=== PATIENT | female | born 1995 | race American Indian/Alaskan Native ===

== ENCOUNTER 2019-02-02 11:18 | Emergency (ER) | payer MEDICAID ==
[2019-02-02] MEDS ORDERED: LORazepam 2 MG/ML VIAL ONE (11:26)
[2019-02-02] MEDS ORDERED: SODIUM CHLORIDE 0.9% 1000 ML 1,000 ML ONE (11:26)
[2019-02-02] MEDS ORDERED: SODIUM CHLORIDE 0.9% 1000 ML 1,000 ML IV ONE (11:29)
[2019-02-02] MEDS ORDERED: levETIRAcetam 1000 MG/NS 0.75% 1,000 MG/100 ML BAG IV ONE (11:30)
[2019-02-02] MEDS ORDERED: LORazepam 2 MG/ML VIAL IV ONE ×2 (11:30→11:38)
--- NOTE | 2019-02-02 11:43 | Emergency Department Report ---
HPI - General Time Seen by Provider: 02/02/19 11:28 - HPI HPI: 23-year-old -[place] female presents to the emergency department via EMS from home with complaint of seizures and altered mental status. The patient does have a seizure history for which she is on Keppra and another medication. She has a history of a glioblastoma. At baseline she is nonambulatory with some left-sided weakness, but she is normally verbal and conversive. Through EMS, mom had said that the patient started having seizures around 3:30 AM this morning. She was given some Versed and went back to her normal baseline mental status. However the seizure started again later in the morning. EMS says that she has been in her current condition since she has been in their presence and that family said she was having seizures when they arrived. She presents with elevated heart rate with a pre-arrival EKG that showed concern for SVT. The patient was given 6 mg, and then 12 mg, of adenosine without any improvement or conversion. ED Review of Systems ROS: Stated complaint: SEIZURES Other details as noted in HPI Comment: Unobtainable due to pts medical conditions Physical Exam - Physical Exam Physical Exam: GENERAL: Patient is ill-appearing and unresponsive. HENT: Normocephalic. Atraumatic. Patient has moist mucous membranes. EYES: Pupils equal reactive to light bilaterally. NECK: Supple. Trachea is midline. CHEST/LUNGS: Clear to auscultation. There is severe tachypnea with accessory muscle use. There is respiratory distress noted. HEART/CARDIOVASCULAR: Regular. There is severe tachycardia. There is no murmur. ABDOMEN: Abdomen is soft. Patient has normal bowel sounds. There is no abdominal distention. SKIN: Skin is warm and dry. NEURO: The patient is unresponsive to verbal or painful stimuli. The patient appears to be having seizure-like activity with a rhythmic motion of the RUE with contractures of the left foot and bilateral hand. She is moving her head side to side. MUSCULOSKELETAL: There is contracture of the left foot and left hand. Left- sided hemiparesis. ED Course - Consultations Consultation #1: I spoke with the critical care attending at [facility], Dr. Sullivan, who listened to the case presentation and has accepted the patient for transfer to [facility]. 02/02/19 14:05 - Intubation Time Out Performed: Yes Sedative: Etomidate Mg Given: 20 Paralytic: Rocuronium Mg Given: 90 Laryngoscope: other (Glydescope) Size: 4 ET Tube Size: 7.5 Tube Secured Depth (cm): 22 Tube Secured Location: lips Tube Placement Confirmation: visualized tube passing t, no breath sounds over epi, confirmation by capnometr Patient Tolerated Procedure: well Additional Comments: ET tube needed to be pulled back 4 cm. The balloon blew so a tube exchange was completed. Repeat EKG shows appropriate placement of the ET tube after the tube exchange. ED Medical Decision Making - Lab Data Result diagrams: 02/02/19 11:45 02/02/19 11:45 - EKG Data -: EKG Interpreted by Me EKG shows normal: sinus rhythm, axis, intervals, QRS complexes, ST-T waves (nonspecific T waves) Rate: tachycardia ( 163 bpm) - EKG Data When compared to previous EKG there are: previous EKG unavailable Interpretation: other (sinus tachycardia at 163 bpm, nonspecific T waves) - Radiology Data Radiology results: report reviewed, image reviewed interpreted by me: The initial chest x-ray shows the end of the endotracheal tube in the right mainstem bronchus. Otherwise the lung tissue does not show any pleural effusio ns, pneumothorax, pneumonia. Repeat chest x-ray after tube exchange shows appropriate placement of the endotracheal tube and otherwise no acute process. CT head/brain wo con INDICATION / CLINICAL INFORMATION: 23 years Female; seizures, AMS, hx of glioblastoma. TECHNIQUE: Routine CT head without contrast. All CT scans at this location are performed using CT dose reduction for ALARA by means of automated exposure control. COMPARISON: None. FINDINGS: BRAIN / INTRACRANIAL CONTENTS: Craniotomy site seen in the right frontoparietal temporal region. There is an area of encephalomalacia in the right frontal lobe deep to the craniotomy site. Punctate calcifications are seen around the area of encephalomalacia along its posterior, superior margin. Findings could be associated with prior lesion. Comparison with prior exam may be helpful, if available. These presumed calcifications almost have the appearance of being vascular in origin. These findings extend across the corpus callosum. There is a small arachnoid cyst superficial to the left cerebellar hemisphere-of no clinical significance. The suprasellar cistern is poorly visualized. The possibility of a lesion in this region, such as a hypothalamic glioma, cannot be excluded. Pre and postcontrast MRI of the brain may be helpful for further evaluation, if clinically warranted. Otherwise, no acute hemorrhage, mass effect, midline shift, hydrocephalus, or acute, large territorial infarct. No significant white matter disease otherwise appreciated. CRANIOCERVICAL JUNCTION: No significant abnormality. ORBITS: No significant abnormality of visualized orbits. SINUSES / MASTOIDS: The left sphenoid sinus is opacified and expansile-mucocele in this region might be a consideration. Small mucous retention cyst/polyp suggested in the right maxillary antrum. ADDITIONAL FINDINGS: No significant atherosclerotic disease appreciated. IMPRESSION: 1. Postoperative changes in the right frontal region as described above. Comparison with prior exam would be helpful, if available. 2. Possible lesion in the region of the suprasellar cistern cannot be excluded. Again, comparison with prior exam may be helpful if available. Alternatively, pre and postcontrast MRI may be of benefit. 3. Mucocele in the left sphenoid sinus is suggested. - Medical Decision Making This patient presents to the emergency department with what appears to be status epilepticus. She has a history of glioblastoma but CT scan of the head without contrast did not show any acute bleed, shift or any acute process. There was some concern for a possible lesion in the suprasellar cistern but needs further evaluation from advanced imaging. At first, EMS thought the patient had a CT due to her EKG and severe tachycardia but she did not have any improvement with the adenosine given. Upon presentation to the emergency department, the patient appeared to be having seizure-like activity with some extremity contractures, some rhythmic pumping motion of the right upper extremity, shaking of her head, and I believe that the tachycardia was secondary to the seizures as opposed to a dysrhythmia. EKG did show sinus tachycardia. She was given 2 mg of Ativan, a gram of Keppra, another 2 mg of Ativan, without cessation of the seizures. She appeared to have some respiratory distress with severe tachycardia and accessory muscle use so the patient was intubated for protection of airway. She was placed on propofol for sedation, which is also within the algorithm of status epilepticus. This appeared to show some improvement as the heart rate went down to about 125 bpm. Patient's labs are mostly unremarkable except for a leukocytosis which is most likely reactive to the status epilepticus. Given that the patient has a history with Ph[facility] for her glioblastoma, and the fact that we do not have 24-hour neurology coverage or the ability to do a continuous EEG, the patient be transferred to [facility] and was accepted by the critical care attending. The patient's family has been updated regarding her labs, imaging and plan for transfer and they understand and agree to the plan. - Differential Diagnosis status epilepticus, malignancy, CVA, dysrhythmia Critical Care Time: Yes Critical care time in (mins) excluding proc time.: 45 Critical care attestation.: If time is entered above; I have spent that time in minutes in the direct care of this critically ill patient, excluding procedure time. Critical care time was spent on this patient and doing her initial evaluation, multiple re- evaluations, ordering and interpretation of labs and imaging, discussion with the patient's family, discussion with the critical care attending at the accepting facility Critical Care Time: 45 minutes ED Disposition Clinical Impression: Status epilepticus, Glioblastoma, Hypertensive urgency Leukocytosis Qualifiers: Leukocytosis type: unspecified Qualified Code(s): D72.829 - Elevated white blood cell count, unspecified Disposition: DC/TX-70 ANOTHER TYPE HLTHCARE Is pt being admited?: No Condition: Serious Referrals: PRIMARY CARE, [Primary Care Provider] - 3-5 Days Time of Disposition: 14:58
[2019-02-02] MEDS ORDERED: ROCURONIUM 50 MG/5 ML INJ IV ONE (11:55)
[2019-02-02] MEDS ORDERED: ETOMIDATE 20 MG/10 ML INJ IV ONE (11:55)
[2019-02-02 11:59] LABS: Hematocrit 48.5 % (30.3-42.9); Hemoglobin 15.9 gm/dl (10.1-14.3); Mean Corpuscular HGB Conc 33 % (30-34); Mean Corpuscular Volume 87 fl (79-97); Platelet Count 310 K/mm3 (140-440); Red Blood Count 5.59 M/mm3 (3.65-5.03); Red Cell Distribution Width 19.1 % (13.2-15.2)
[2019-02-02 12:09] LABS: INR 1.07 (0.87-1.13)
[2019-02-02 12:10] LABS: Partial Thromboplastin Time 22.4 Sec. (24.2-36.6)
[2019-02-02 12:25] LABS: Alanine Aminotransferase 80 units/L (7-56); Albumin 4.2 g/dL (3.9-5); BUN/Creatinine Ratio 14; Blood Urea Nitrogen 15 mg/dL (7-17); Hemolysis Index 11
[2019-02-02] MEDS ORDERED: MINERAL OIL/PETROLATUM, WHITE OPHTH OINT 3.5 GM OU PRN (12:38)
[2019-02-02] MEDS ORDERED: LIP THERAPY VASELINE TP PRN (12:38)
--- NOTE | 2019-02-02 12:41 | XRay Report ---
CHEST 1 VIEW INDICATION: Altered mental status ett placement. COMPARISON: None. FINDINGS: Support devices: An endotracheal tube tip is in the proximal right mainstem bronchus. Heart: Within normal limits. Pulmonary vasculature: Normal for film technique. Lungs/Pleura: No acute air space or interstitial disease. Additional findings: Right [id number] tip is in the right atrium. IMPRESSION: 1. Abnormal position of the endotracheal tube in the right mainstem bronchus. CRITICAL RESULT: Time of Discovery (AMMUNITION STOREKEEPER/CDT): 11:30 AM Time of Communication (AMMUNITION STOREKEEPER/CDT): 11:35 AM Licensed Practitioner Receiving Report: Bebo Snyder MD Read Back Performed: Yes. Signer Name: Je Chairez MD Signed: 02/02/2019 12:37 PM Workstation Name: [id number]
[2019-02-02] MEDS ORDERED: PROPOFOL 1,000 MG/100 ML BOTTLE IV SCH (13:00)
--- NOTE | 2019-02-02 13:03 | Cat Scan Report ---
CT head/brain wo con INDICATION / CLINICAL INFORMATION: 23 years Female; seizures, AMS, hx of glioblastoma. TECHNIQUE: Routine CT head without contrast. All CT scans at this location are performed using CT dos e reduction for ALARA by means of automated exposure control. COMPARISON: None. FINDINGS: BRAIN / INTRACRANIAL CONTENTS: Craniotomy site seen in the right frontoparietal temporal region. Ther e is an area of encephalomalacia in the right frontal lobe deep to the craniotomy site. Punctate calc ifications are seen around the area of encephalomalacia along its posterior, superior margin. Finding s could be associated with prior lesion. Comparison with prior exam may be helpful, if available. The se presumed calcifications almost have the appearance of being vascular in origin. These findings ext end across the corpus callosum. There is a small arachnoid cyst superficial to the left cerebellar hemisphere-of no clinical signific ance. The suprasellar cistern is poorly visualized. The possibility of a lesion in this region, such as a h ypothalamic glioma, cannot be excluded. Pre and postcontrast MRI of the brain may be helpful for furt her evaluation, if clinically warranted. Otherwise, no acute hemorrhage, mass effect, midline shift, hydrocephalus, or acute, large territoria l infarct. No significant white matter disease otherwise appreciated. CRANIOCERVICAL JUNCTION: No significant abnormality. ORBITS: No significant abnormality of visualized orbits. SINUSES / MASTOIDS: The left sphenoid sinus is opacified and expansile-mucocele in this region might be a consideration. Small mucous retention cyst/polyp suggested in the right maxillary antrum. ADDITIONAL FINDINGS: No significant atherosclerotic disease appreciated. IMPRESSION: 1. Postoperative changes in the right frontal region as described above. Comparison with prior exam w ould be helpful, if available. 2. Possible lesion in the region of the suprasellar cistern cannot be excluded. Again, comparison wit h prior exam may be helpful if available. Alternatively, pre and postcontrast MRI may be of benefit. 3. Mucocele in the left sphenoid sinus is suggested. Signer Name: Luis Cruz MD, III Signed: 02/02/2019 12:59 PM Workstation Name: [id number]
--- NOTE | 2019-02-02 13:37 | XRay Report ---
CHEST 1 VIEW INDICATION: Endotracheal tube exchange. COMPARISON: 02/02/2019 at 1205 hours FINDINGS: Support devices: The endotracheal tube has been repositioned and now terminates within 1 cm above the francisco. Consider retraction by 1-2 cm. Right [id number] remains in good position. Heart: Within normal limits. Lungs/Pleura: No acute air space or interstitial disease. Atelectatic changes in the left lung have r esolved. Additional findings: None. IMPRESSION: The endotracheal tube terminates within 1 cm above the francisco. See above. Atelectatic changes in the left lung have resolved since the previous exam. Unremarkable AP chest otherwise Signer Name: Ag Clinton Jr, MD Signed: 02/02/2019 1:33 PM Workstation Name: [id number]
[2019-02-02 14:17] LABS: Total Cells Counted 100
[2019-02-02 14:18] LABS: Basophils % (Manual) 0 % (0.0-1.8); Eosinophils % (Manual) 0 % (0.0-4.3); Large Platelets Few; Platelet Estimate Consistent w Auto; Target Cells Few
[2019-02-02] MEDS ORDERED: niCARdipine 50 MG in SODIUM CHLORIDE 0.9% 250ML 230 ML IV SCH (16:00)
[2019-02-02 16:32] VITALS: BP 167/88
== END 2019-02-02 15:15 | disposition other institution (70) ==
LOC: ED 11:18
DX: G40.501 Epileptic seizures related to external causes, not intractable, with status epilepticus (principal); C71.9 Malignant neoplasm of brain, unspecified; D72.829 Elevated white blood cell count, unspecified; I16.0 Hypertensive urgency; Z91.041 Radiographic dye allergy status
CPT/HCPCS: 31500; 36415; 70450; 71045; 80053; 82140; 82550; 82803; 84443; 84703; 85007; 85025; 85610; 85730; 86850; 86900; 86901; 87070; 87205; 93005; 93010; 94002; 96365; 96375; 96376; 99291; J1953; J2060; J2704; J7030; J7050